=== PATIENT | female | born 1955 | race Caucasian/White ===

== ENCOUNTER → 2016-09-14 | Outpatient (CLI) | payer OTHER | LOC: ULTRA 10:02 | DX: R10.11 Right upper quadrant pain (principal) ==

== ENCOUNTER → 2016-12-03 | Outpatient (CLI) | payer OTHER | LOC: NUC 07:29 | DX: R10.9 Unspecified abdominal pain (principal); R14.0 Abdominal distension (gaseous) ==

== ENCOUNTER 2017-02-08 05:48 | Day surgery (SDC) | payer OTHER ==
[2017-02-08] VITALS (11 sets, daily range): BP systolic 120–141; BP diastolic 70–90
[~2017-02-08] VITALS: Ht 162.6 cm; Wt 69.4 kg
--- NOTE | ~2017-02-08 | S ---
[facility] [place] [address] SURGICAL PATH RPT PROCEDURE Name: MARITZA CALDWELL Room #: DEP [facility] M.R.#: [id number] Admission: 02/08/17 Date of : 57 Discharge: 02/09/17 Report #: [id number] Path Case #: [id number] PATHOLOGY REPORT COLLECTION DATE: 02/08/2017 RECEIVED DATE: 02/08/2017 SUBMITTING PHYS: Dr. Eduard Alfonso OTHER PHYS: Dr. Reanldo Cheung SPECIMEN(S) RECEIVED: A.Gallbladder * * * * * * * * * * * * FINAL DIAGNOSIS: Gallbladder, cholecystectomy: - Chronic cholecystitis. PATHOLOGIST: Maximo Fitzpatrick M.D. REPORT ELECTRONICALLY SIGNED BY: Maximo Fitzpatrick M.D. DATE/TIME: 02/11/2017 10:08 * * * * * * * * * * * * GROSS PATHOLOGY: Received in formalin labeled "Maritza Caldwell gallbladder," is a 6.5 x 2.8 x 0.9 cm, previously opened gallbladder with green and smooth with adhesions serosal surfaces. Opening the gallbladder reveals pink-brown, velvety, and bile stained mucosa and an average wall thickness of 0.1 cm. Calculi are not present and no masses are noted grossly. Administrative Medical Director sections from the body and fundus are submitted along with the proximal margin in cassette A1. The formalin container and contents are filtered revealing no calculi. (SDY; 02/08/2017) CLINICAL HISTORY: Gallbladder disease with stones INITIAL CPT CODE(S): A; 22813 Professional services performed by [facility] at [facility] [address], [place] [address] Technical services performed by [facility] at [address] [place] [id number]. [facility] [address] [place] [address] SURGICAL PATH RPT PROCEDURE Name: MARITZA CALDWELL Room #: DEP [facility] Gabbi#: [id number] Admission: 02/08/17 Date of : 57 Discharge: 02/09/17 Report #: [id number] Path Case #: [id number] [facility] [address] [address] PHONE: [phone] DIRECTOR: Deng Blancas M.D. * * * END OF REPORT * * *
--- NOTE | ~2017-02-08 | O ---
[facility] [place] [address] OPERATIVE REPORT Name: BLANCA CALDWELL Room #: 410-P [facility]..#: [id number] Admission: 02/08/17 Attend Phys: Eduard Alfonso MD Discharge: Date of : 57 Report #: [id number] THIS REPORT FOR: //name// CC: Eduard Cheung MD DATE OF SERVICE: 02/08/2017 PREOPERATIVE DIAGNOSES: Acalculous cholecystitis with biliary dyskinesia. POSTOPERATIVE DIAGNOSES: Acalculous cholecystitis with biliary dyskinesia plus cholesterolosis. ANESTHESIA: General. SURGEON: Eduard Alfonso M.D. COMPLICATIONS: None. BLOOD LOSS: 5 mL. PROCEDURE PERFORMED: Laparoscopic cholecystectomy with cholangiogram. DESCRIPTION OF PROCEDURE: With the patient under general anesthesia, timeout was performed. IV antibiotic was administered. A 0.25% Marcaine was used to anesthetize the skin and subcutaneous tissue, abdominal wall underneath the umbilicus. A 1.5 cm incision was made infraumbilically, fascia was identified. Fascia was then grasped with hemostat. Fascia was opened under visualization. A 0 Vicryl suture was placed on the fascia edges for retraction. Veress needle was then placed through the peritoneum. Abdominal cavity was insufflated with CO2. After creating pneumoperitoneum, 11 mm trocar was placed under visualization. No harm to the underlying tissue. On laparoscopic evaluation, the patient did have omental adhesion to the wall on the right side consistent with appendectomy. The gallbladder was identified. Two 5 mm trocars were placed in the right upper quadrant another 5 mm trocar was placed in the right epigastrium. The patient was placed in reverse Trendelenburg position, right side tilted up. The gallbladder was lifted over the liver. The peritoneum with a cystic duct was then dissected free. The tissue around the cystic duct is moderately thickened consistent with likely from prior inflammation. The cystic duct was isolated. A clip was placed in junction of cystic duct to the gallbladder, opening was made in the cystic duct. Cholangiogram catheter was then placed. I could only get the tip of the catheter in. The cystic duct also noted to have several areas of dilatation, probably from prior inflammation. Fluoroscopic cholangiogram was obtained. Common bile duct filled out well. No filling defect in the common duct. The catheter was identified in the cystic [address] [address] OPERATIVE REPORT Name: BLANCA CALDWELL Room #: 410-P [facility]..#: [id number] Admission: 02/08/17 Attend Phys: Eduard Alfonso MD Discharge: Date of : 57 Report #: [id number] duct. Towards the end of the injection because the catheter was not able to be inserted very far, there is extravasation at the cannulation site. The cholangiogram catheter was then removed. The proximal cystic duct was then clipped x 2 and then divided. A small medial branch was found. This was clipped x 2 proximally 1 distally and then divided. The larger branches more posterior laterally located, this was also clipped x 2 proximally and 1 distally and then divided. Gallbladder was freed from the liver bed. Gallbladder was easily removed and medially freed and then removed through the infraumbilical port. Gallbladder was opened off the field. There is significant cholesterolosis in the gallbladder wall. Irrigation was performed. Liver bed is hemostatic. Clips were intact. Irrigation fluid was aspirated out. Trocars removed. CO2 was evacuated. The infraumbilical fascia defect was identified and then closed with 0 Vicryl slnejw-up-zyuty x 2. Skin was irrigated. 5-0 PDS was used to close the skin. Steri-Strip, Band-Aids applied. The patient tolerated procedure well. By: [id number] [id number] Eduard Alfonso MD /nt
--- NOTE | ~2017-02-08 | EKG ---
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
[~2017-02-08 05:48] MED LIST: CELEXA40 MG PO; CLONAZEPAM 0.50.5 M1 PO; DITROPAN XL15 MG PO; LIPITOR10 MG PO; TYLENOL PM EX-1 EACH PO; ZANTAC 150MG T150 MG PO
[2017-02-09 00:55] VITALS: BP 122/66
[2017-02-09 04:58] VITALS: BP 116/57
[2017-02-09 08:00] VITALS: BP 123/82
[2017-02-09 12:15] VITALS: BP 106/58
[2017-02-09] MEDS ORDERED: NORCO 5-325 TA1 EACH PO (13:06)
[2017-02-09 13:44] VITALS: BP 106/58
== END 2017-02-09 14:15 | disposition home or self-care (01) ==
LOC: OR 05:48 → TBA 05:48 → 4N 12:03 → OR 12:35
DX: K82.8 Other specified diseases of gallbladder (principal); K81.9 Cholecystitis, unspecified; F32.89 Other specified depressive episodes; F41.8 Other specified anxiety disorders; E78.00 Pure hypercholesterolemia, unspecified; K21.9 Gastro-esophageal reflux disease without esophagitis; Z87.891 Personal history of nicotine dependence; Z98.890 Other specified postprocedural states
CPT/HCPCS: 50010; 50101; 50411; 50555; 50558; 51489; 53307; 53310; 55245; 55317; 56462; 56525; 56526; 62110; 62900; 70005

== ENCOUNTER → 2017-12-16 | Outpatient (CLI) | payer OTHER ==
[~2017-12-16] VITALS: Ht 162.6 cm; Wt 70.8 kg
[~2017-12-16] MED LIST changes: +MELATONIN5 M1 PO; +NORCO 5-325 TA1 EACH PO
--- NOTE | ~2017-12-16 | PATH ---
[facility] [address] [place] [address] PATHOLOGY RPT PROCEDURE Name: MARITZA CALDWELL Room #: REG [facility] Gabbi#: [id number] Admission: 12/16/17 Date of : 57 Discharge: Report #: [id number] Path Case #: [id number] [facility] Accession Number: [id number] . 01 Material submitted: . PART A: RANDOM BIOPSY R/O MICROSCOPIC COLITIS PART B: RECTAL POLYP AT PREVIOUS POLYPECTOMY SITE . 01 Clinical history: . Pre-OP DX: Hx polyps, diarrhea Post-OP DX: colon polyp, chronic diarrhea . 02 Diagnosis: A. "Random BX, R/O microscopic colitis", biopsy: - Colonic mucosa with mild diffuse acute colitis and mildly increased superficial chronic inflammation; no dysplasia seen (see comment). . B. "Rectal polyp at previous polypectomy site", biopsy: - Tubular adenoma; no high grade dysplasia. [facility]/12/17/2017 . 02 Comment: Within specimen A, the pattern of inflammation is overall nonspecific, but suggestive of infectious-type colitis. While there is a mildly increased superficial chronic inflammatory cell infiltrate, there is not a basal plasmacytosis or chronic architectural changes. Idiopathic inflammatory bowel disease is considered less likely. Clinical and endoscopic correlation is required. . (CLW:mmmilan; 12/17/17) . 02 Electronically signed: . Mei Michele MD, Pathologist NPI- [id number] . 01 Gross description: . A. Received in formalin labeled "Caldwell Maritza, random BX, rule out microscopic colitis," are 4 segments of diez soft tissue measuring 1.0 x 0.5 x 0.2 cm in aggregate dimensions and ranging from 0.2 to 0.5 cm in maximum dimension. The specimen is submitted entirely in cassette A1. . B. Received in formalin labeled "Maritza Caldwell, rectal polyp at previous polypectomy site," is a 0.6 x 0.4 x 0.4 cm polypoid piece of diez soft tissue. The margin is inked and the specimen is sectioned perpendicular to the margin is entirely submitted in cassette B1. Additionally received in the same container is a 0.8 x 0.5 x 0.4 segment of polypoid piece of diez soft tissue. The margin is inked and the [address] [address] PATHOLOGY RPT PROCEDURE Name: MARITZA CALDWELL Room #: REG [facility] Seo#: [id number] Admission: 12/16/17 Date of : 57 Discharge: Report #: [id number] Path Case #: [id number] specimen is sectioned perpendicular to the margin and entirely submitted in cassette B2. (TSD; 12/16/2017) TOB/TOB . 02 Pathologist provided ICD-10: D12.8, K52.9 . 02 CPT . 366526, 423241 Performed at: [address], [place] [id number] MD Eagle Johnson MD Phone: [phone] Performed at: [address] [id number] MD Zee Villanueva MD Phone: [phone]
--- NOTE | ~2017-12-16 | P ---
[facility] [place] [address] PROCEDURE REPORT Name: BLANCA CALDWELL Room #: REG Margarita Seo#: [id number] Admission: 12/16/17 Attend Phys: Kenton Davidson Discharge: Date of : 57 Report #: [id number] THIS REPORT FOR: //name// CC: Kenton Baker DATE OF SERVICE: 12/16/2017 PROCEDURE PERFORMED: Colonoscopy with polypectomy and tattoo. HISTORY OF PRESENT ILLNESS: The patient is a 62-year-old female who underwent a colonoscopy by myself on 03/03/2014 in which a large tubular adenomatous polyp was removed in her distal rectum. She had a 6-month followup flexible sigmoidoscopy on 09/01/2014, previous polypectomy site was noted and looked well healed; however, I did obtain some biopsies that did show tubular adenomatous change. No evidence of dysplasia. I recommended a repeat flexible sigmoidoscopy in 6 months at that time. She never did followup. She now presents today for a routine colonoscopy. She does report chronic loose stools and diarrhea, averaging 3-5 per day. She has had a previous cholecystectomy within the last few years, which has made her diarrhea somewhat worse. There is no family history of colon cancer. DESCRIPTION OF PROCEDURE: The risks and benefits of the procedure were explained to the patient, those risks including but not limited to bleeding, perforation, and the risk of sedation. She understood these risks and gave informed consent. Sedation was given using propofol per anesthesia. Next, a digital rectal exam was initially performed, which was normal. Next, using a standard Olympus colonoscope, the scope was placed in the patient's anus and advanced under direct vision to the cecum. The overall prep was excellent. The cecum and ileocecal valve were normal in appearance. The ascending, transverse, descending and sigmoid colon were normal. Random biopsies were obtained today to rule out the possibility of microscopic colitis. In the distal rectum, there is a recurrence of her adenomatous polyp noted in 2 areas that were approximately 6 mm in size. Both of these were removed by snare cautery. I then proceeded with APC cautery of the base, after that the edges of the previous polypectomy site were tattooed. On retroflexion, no abnormalities were noted. The scope was then withdrawn and the procedure terminated. The patient tolerated the procedure well. IMPRESSION: 1. Recurrent adenomatous polyp in the distal rectum as described above. 2. Otherwise, normal colonoscopy. RECOMMENDATIONS: 1. Await biopsy results. [address] [address] PROCEDURE REPORT Name: BLANCA CALDWELL Room #: REG [facility] Seo#: [id number] Admission: 12/16/17 Attend Phys: Kenton Davidson Discharge: Date of : 57 Report #: [id number] 2. Repeat flexible sigmoidoscopy in 6 months' time. 3. We will add Emmett at this time for her history of chronic diarrhea. We will await biopsies to rule out microscopic colitis. Thank you for allowing me to participate in her care. <ELECTRONICALLY SIGNED> By: Kenton Che MD 12/16/172008 0941 1321 Kenton Che MD /nt
== END | disposition home or self-care (01) ==
LOC: GI 07:09
DX: D12.8 Benign neoplasm of rectum (principal); K52.9 Noninfective gastroenteritis and colitis, unspecified; K21.9 Gastro-esophageal reflux disease without esophagitis; F32.9 Major depressive disorder, single episode, unspecified; F41.9 Anxiety disorder, unspecified; E78.5 Hyperlipidemia, unspecified; Z98.890 Other specified postprocedural states; Z90.49 Acquired absence of other specified parts of digestive tract; Z87.891 Personal history of nicotine dependence; Z79.899 Other long term (current) drug therapy
CPT/HCPCS: 62110; 62900

== ENCOUNTER → 2018-06-04 | Outpatient (CLI) | payer OTHER | LOC: RAD 16:13 | DX: R05 Cough (principal); R06.02 Shortness of breath ==

== ENCOUNTER → 2018-12-24 | Outpatient (CLI) | payer OTHER | LOC: RAD 14:29 | DX: Z12.31 Encounter for screening mammogram for malignant neoplasm of breast (principal) ==

== ENCOUNTER → 2019-05-06 | Outpatient (CLI) | payer OTHER ==
[~2019-05-06] VITALS: Ht 162.6 cm; Wt 73.5 kg
[~2019-05-06] MED LIST changes: +ACID REDUCER20 MG PO; +DULERA 100 MCG/13 GM INH; +MUCINEX600 MG PO; +PROAIR HFA8.5 GM INH
--- NOTE | ~2019-05-06 | P ---
[facility] [place] [address] PROCEDURE REPORT Name: BLANCA CALDWELL Room #: REG [facility] Gabbi#: [id number] Admission: 05/06/19 Attend Phys: Kenton Davidson Discharge: Date of : 57 Report #: [id number] THIS REPORT FOR: //name// CC: Kenton Cheung MD DATE OF SERVICE: 05/06/2019 PROCEDURE PERFORMED: Flexible sigmoidoscopy with biopsies. HISTORY OF PRESENT ILLNESS: The patient is a 63-year-old female who had a colonoscopy by myself on 03/03/2014, in which a large tubular adenomatous polyp was removed in her distal rectum. A 6-month followup, previous polypectomy site was noted and looked well healed; however, I did obtain biopsies that showed adenomatous change, no dysplasia. Recommended a repeat flexible sigmoidoscopy in 6 months at that time, but she did not show for that. She presented for a routine colonoscopy on 12/16/2017. She does have a history of chronic loose stools, previous cholecystectomy. We have tried cholestyramine without much improvement. She had recurrent adenomatous polyp in the distal rectum on that colonoscopy, which showed tubular adenoma, no high-grade dysplasia. She now presents for a followup. DESCRIPTION OF PROCEDURE: The risks and benefits of the procedure were explained to the patient, those risks including but not limited to bleeding, perforation, the risk of sedation. She understood these risks and gave informed consent. Sedation was given using propofol per anesthesia. Next, a digital rectal exam was initially performed, which was normal. Next, using an Olympus upper endoscope, the scope was placed in the patient's anus and advanced under direct vision to the descending colon. The overall prep was excellent. The distal descending and sigmoid colon were normal. In the rectum, the previous tattoo and polypectomy site was noted in the distal rectum. No obvious adenomatous tissue was noted. A scar was noted. Several biopsies were obtained in this area. Also noted were two 3 mm sessile polyps in a different area of the rectum, both were removed by cold forceps today. On retroflexion, no abnormalities were noted. The scope was then withdrawn and the procedure terminated. The patient tolerated the procedure well. IMPRESSION: 1. Previous polypectomy site noted, well healed, biopsies obtained. 2. Two small rectal polyps removed. RECOMMENDATIONS: 1. Await biopsy results. 2. If the patient has adenomatous tissue, would consider repeat flexible sigmoidoscopy in [address] [address] PROCEDURE REPORT Name: BLANCA CALDWELL Room #: REG [facility] Seo#: [id number] Admission: 05/06/19 Attend Phys: Kenton Davidson Discharge: Date of : 57 Report #: [id number] Thank you for allowing me to participate in her care. By: 0955 1055 Kenton Che MD /ziggy
--- NOTE | ~2019-05-06 | P ---
[facility] [place] [address] PROCEDURE REPORT Name: BLANCA CALDWELL [facility] [id number] Admission: 05/06/19 Attend Phys: Kenton Davidson Discharge: Date of : 57 Report #: [id number] THIS REPORT FOR: //name// CC: Kenton Cheung MD DATE OF SERVICE: 05/06/2019 PROCEDURE PERFORMED: Upper endoscopy with biopsies. HISTORY OF PRESENT ILLNESS: The patient is a 63-year-old female with a history of intermittent abdominal pain, primarily periumbilical. She does have a history of reflux and heartburn, takes Prilosec approximately 4 times per week. Denies any nausea or vomiting. She also has a history of chronic diarrhea, has undergone colonoscopies by myself in the past. Last time, biopsies were negative for microscopic colitis. Plan is for EGD. She is also scheduled for flexible sigmoidoscopy for a recurrent tubular adenomatous polyp in the distal rectum. DESCRIPTION OF PROCEDURE: The risks and benefits of the procedure were explained to the patient, those risks including but not limited to bleeding, perforation and the risk of sedation. She understood these risks and gave informed consent. Sedation was given using propofol per anesthesia. Next, using a standard Olympus upper endoscope, the scope was placed in the patient's mouth and advanced under direct vision through the esophagus, stomach and into the second portion of the duodenum. The larynx was normal in appearance. The esophagus was normal throughout. The GE junction was normal. There was a mild gastritis noted in the gastric body. No evidence of ulcerations or erosions. Biopsies were obtained to rule out H. pylori. The pylorus was normal and patent. The duodenal bulb, first and second portion were all normal. Biopsies were obtained to rule out the possibility of celiac sprue. The scope was then withdrawn and the procedure terminated. The patient tolerated the procedure well. IMPRESSION: 1. Mild gastritis. 2. Otherwise, normal upper endoscopy. RECOMMENDATIONS: 1. Await biopsy results. 2. Continue PPI therapy. 3. We will proceed with flexible sigmoidoscopy today. [facility] [address] [place] [address] PROCEDURE REPORT Name: BLANCA CALDWELL Room #: REG Margarita Seo#: [id number] Admission: 05/06/19 Attend Phys: Kenton Davidson Discharge: Date of : 57 Report #: [id number] Thank you for allowing me to participate in her care. By: 0949 1035 Kenton Che MD /nt
--- NOTE | 2019-05-07 15:07 | PATH ---
[facility] [place] [address] PATHOLOGY RPT PROCEDURE Name: MARITZA CALDWELL Room #: REG [facility]..#: [id number] Admission: 05/06/19 Date of : 57 Discharge: Report #: [id number] Path Case #: [id number] [facility] Accession Number: [id number] . 01 Material submitted: . PART A: duodenum - BX DUODENUM PART B: stomach - GASTRIC BX PART C: rectum - BX OF PREVIOUS POLYPECTOMY SITE AT RECTUM PART D: rectum - RECTAL POLYPS . 01 Clinical history: . Pre-op diagnosis: Nausea, vomiting, polyp Post-op diagnosis: Gastritis, rectal polyps A. R/O sprue B. R/O H. pylori . 02 Diagnosis: A. Small bowel mucosa, duodenum to rule out sprue, endoscopic biopsy: - No significant diagnostic abnormalities identified. - Negative for villous blunting or increase in intraepithelial lymphocytes. . B. Gastric mucosa, gastric to rule out H. pylori, endoscopic biopsy: - Helicobacter pylori induced moderate to marked active gastritis. - Negative for intestinal metaplasia or atrophy. - Moderate number of Helicobacter pylori organisms identified on the properly controlled immunohistochemical stain. . C. Large intestine, previous polypectomy site at rectum, endoscopic biopsy: - Reactive hyperplastic changes and a lymphoid aggregate. - Negative for dysplasia or malignancy. . D. Polyps, rectal polyps, endoscopic biopsy: - Hyperplastic polyps. - Negative for dysplasia. . (IUV:water valve mechanic; 05/07/2019) MBR 05/07/2019 1219 Local . 02 Electronically signed: . Zee Villanueva MD, Pathologist NPI- [id number] . 01 Gross description: . A. The specimen is received in formalin, labeled "Maritza Caldwell, biopsy duodenum, R/O sprue". Received are four segments of pale diez [address] [address] PATHOLOGY RPT PROCEDURE Name: MARITZA CALDWELL Room #: REG CLI [facility].#: [id number] Admission: 05/06/19 Date of : 57 Discharge: Report #: [id number] Path Case #: [id number] tissue ranging in size from 0.3 to 0.4 cm in maximum dimensions. The specimen is submitted entirely in cassette A1. . B. The specimen is received in formalin, labeled "Maritza Caldwell, gastric biopsy, R/O H. pylori". Received are three segments of pale diez soft tissue ranging in size from 0.4 to 0.6 cm in maximum dimensions. The specimen is submitted entirely in cassette B1. . C. The specimen is received in formalin, labeled "Maritza Caldwell, biopsy of previous polypectomy site at rectum". Received are four segments of pale diez soft tissue ranging in size from 0.1 to 0.4 cm in maximum dimensions. The specimen is submitted entirely in cassette C1. . D. The specimen is received in formalin, labeled "Maritza Caldwell, rectal polyps". Received are two segments of pale diez soft tissue ranging in size from 0.3 to 0.4 cm in maximum dimensions. The specimen is submitted entirely in cassette D1. ([facility]; 05/06/2019) QA/QA 05/06/2019 1900 Local . 02 Pathologist provided ICD-10: K29.70, B96.81, K62.1 . 02 CPT . 672441, 250131, 423058, 057444, L01959 Specimen Comment: A courtesy copy of this report has been sent to [phone], [phone] Specimen Comment: [id number] Specimen Comment: Report sent to and Performed at: [address], [place] [id number] MD Eagle Johnson MD Phone: [phone] Performed at: [address] [id number] MD Zee Villanueva MD Phone: [phone]
== END | disposition home or self-care (01) ==
LOC: GI 06:44
DX: Z09 Encounter for follow-up examination after completed treatment for conditions other than malignant neoplasm (principal); Z86.010 Personal history of colon polyps; K62.1 Rectal polyp; K29.70 Gastritis, unspecified, without bleeding; B96.81 Helicobacter pylori [H. pylori] as the cause of diseases classified elsewhere; F32.9 Major depressive disorder, single episode, unspecified; F41.9 Anxiety disorder, unspecified; J43.9 Emphysema, unspecified; E78.5 Hyperlipidemia, unspecified; K21.9 Gastro-esophageal reflux disease without esophagitis; Z98.890 Other specified postprocedural states; Z87.891 Personal history of nicotine dependence; Z90.49 Acquired absence of other specified parts of digestive tract; Z79.899 Other long term (current) drug therapy
CPT/HCPCS: 62110; 62900

== ENCOUNTER → 2019-11-30 | Outpatient (CLI) | payer OTHER | LOC: RAD 09:03 | PROVIDERS: ATTEND Internal Medicine | DX: J43.8 Other emphysema (principal); J98.4 Other disorders of lung; I25.10 Atherosclerotic heart disease of native coronary artery without angina pectoris ==

== ENCOUNTER → 2019-12-09 | Outpatient (CLI) | payer OTHER | LOC: LAB 14:18 | PROVIDERS: ATTEND Neuromusculoskeletal Medicine & OMM | DX: Z20.828 Contact with and (suspected) exposure to other viral communicable diseases (principal); R05 Cough; R06.02 Shortness of breath ==

== ENCOUNTER → 2019-12-09 | Outpatient (CLI) | payer OTHER | LOC: RAD 15:03 | PROVIDERS: ATTEND Neuromusculoskeletal Medicine & OMM | DX: Z12.31 Encounter for screening mammogram for malignant neoplasm of breast (principal) ==

== ENCOUNTER → 2020-04-08 | Outpatient (CLI) | payer OTHER | LOC: LAB 10:19 | PROVIDERS: ATTEND Neuromusculoskeletal Medicine & OMM | DX: U07.1 COVID-19 (principal) ==

== ENCOUNTER → 2020-05-04 | Outpatient (CLI) | payer OTHER | LOC: CAT 12:52 | PROVIDERS: ATTEND Internal Medicine | DX: Z12.2 Encounter for screening for malignant neoplasm of respiratory organs (principal); I70.0 Atherosclerosis of aorta; J84.10 Pulmonary fibrosis, unspecified; I25.10 Atherosclerotic heart disease of native coronary artery without angina pectoris; R91.1 Solitary pulmonary nodule; Z87.891 Personal history of nicotine dependence ==

== ENCOUNTER → 2021-04-17 | Outpatient (CLI) | payer OTHER | LOC: RAD 15:01 | PROVIDERS: ATTEND Nurse Practitioner | DX: Z12.31 Encounter for screening mammogram for malignant neoplasm of breast (principal); N64.89 Other specified disorders of breast ==